=== PATIENT | female | born 1990 | race Caucasian/White ===

== ENCOUNTER 2025-04-19 15:19 | Emergency (ER) | payer OTHER ==
[~2025-04-19] VITALS: Ht 144.8 cm; Wt 93.4 kg
[~2025-04-19 15:19] MED LIST: AMIT25TA9 PO; IBUP-51 PO; SERT50TA12 PO
[2025-04-19] MEDS ORDERED: IBUP-1955 PO (17:34)
[2025-04-19] MEDS ORDERED: LIDO30AD10 TP (17:44)
[2025-04-19] MEDS ORDERED: CYCL5TAB PO (17:44)
[2025-04-19 18:19] VITALS: BP 149/94; TEMP 98.2; O2SAT 99
== END 2025-04-19 18:00 | disposition home or self-care (01) ==
LOC: ER 15:46
DX: S93.491A Sprain of other ligament of right ankle, initial encounter (principal); S16.1XXA Strain of muscle, fascia and tendon at neck level, initial encounter; S50.811A Abrasion of right forearm, initial encounter; F32.A Depression, unspecified; F41.9 Anxiety disorder, unspecified; Z79.899 Other long term (current) drug therapy; V03.00XA Pedestrian on foot injured in collision with car, pick-up truck or van in nontraffic accident, initial encounter; Y93.89 Activity, other specified; Y92.415 Exit ramp or entrance ramp of street or highway as the place of occurrence of the external cause; Y99.8 Other external cause status
CPT/HCPCS: 99284; 72125; 73610; 73630; 73564; 73590; 70450; 84703; A6403